=== PATIENT | female | born 1960 | race Hispanic/Latino ===

== ENCOUNTER 2019-04-15 05:41 | Day surgery (SDC) | payer MEDICAID ==
[~2019-04-15] VITALS: Ht 152.4 cm; Wt 75.1 kg
[2019-04-15] MEDS ORDERED: SODIUM CHLORIDE 0.9% 1000ML 1,000 ML IV ONE (05:46)
[2019-04-15 06:16] VITALS: BP 134/70
[2019-04-15] MEDS ORDERED: LIDOCAINE HCL 1% 20 ML VIAL ONE (06:56)
[2019-04-15] MEDS ORDERED: PROPOFOL 10 MG/ML 20ML VIAL IV ONE (06:56)
[2019-04-15 07:17] VITALS: BP 91/60
[2019-04-15 07:22] VITALS: BP 98/59
[2019-04-15 07:27] VITALS: BP 108/68
[2019-04-15 07:35] VITALS: BP 120/77
== END 2019-04-15 07:43 | disposition home or self-care (01) ==
LOC: DAH 05:41 → ENDO 05:41
PROVIDERS: ATTEND Internal Medicine
DX: K59.00 Constipation, unspecified (principal); D12.8 Benign neoplasm of rectum; K57.30 Diverticulosis of large intestine without perforation or abscess without bleeding; K64.8 Other hemorrhoids; E03.9 Hypothyroidism, unspecified; K21.9 Gastro-esophageal reflux disease without esophagitis; E78.5 Hyperlipidemia, unspecified; G40.909 Epilepsy, unspecified, not intractable, without status epilepticus; Z79.899 Other long term (current) drug therapy; Z98.890 Other specified postprocedural states; Z82.5 Family history of asthma and other chronic lower respiratory diseases
CPT/HCPCS: 45380; 45385; 88305; A4215; A4222; A4223; A4606; A4615; A4649; A4663; J2704; J7030